=== PATIENT | male | born 1940 | race Caucasian/White ===

== ENCOUNTER 2016-07-06 00:59 | Emergency (ER) | payer MEDICARE, MEDICAID ==
[2016-07-06 01:20] VITALS: TEMP 98.7; BMI 32.7
--- NOTE | 2016-07-06 02:33 | EDPRACDOC ---
- General Information Chief Complaint: Dyspnea/Resp distress Stated Complaint: SHOB Time Seen by Provider: 07/06/16 02:29 Information Source: Patient, Family Mode Of Arrival: Car Home Medications: Home Medications Albuterol Sulfate [Proair Hfa] 2 puff INH Q4-6H PRN 12/01/14 Budesonide/Formoterol Fumarate [Symbicort 160-4.5 Mcg Inhaler] 2 puff INH BID Docusate Sodium [Stool Softener] 100 mg PO DAILY 12/01/14 Multivitamin [Multiple Vitamins] 1 tab PO DAILY 12/01/14 Oxymetazoline [Afrin] 2 spray IQRA BID 12/01/14 Ranitidine HCl 150 mg PO DAILY 12/01/14 Tiotropium [place] [Spiriva] 18 mcg INH DAILY 12/01/14 Amlodipine [Norvasc] 5 mg PO DAILY 06/10/16 Doxazosin Mesylate [Cardura] 4 mg PO HS 06/10/16 Furosemide [Lasix] 20 mg PO DAILY 06/10/16 Guaifenesin [Mucinex] 1,200 mg PO BID 06/10/16 Azithromycin [Zithromax Tri-Daron] 500 mg PO DAILY #3 tablet 06/13/16 Cefdinir [Omnicef] 300 mg PO BID #10 capsule 06/13/16 Furosemide [Lasix] 40 mg PO BID #10 tab 07/06/16 Potassium Chloride [K-Dur] 10 meq PO DAILY #10 tab 07/06/16 Allergies/Adverse Reactions: Allergies Allergy/AdvReac Type Severity Reaction Status Date / Time No Known Allergies Allergy Verified 06/10/16 07:08 - History of Present Illness Onset: SEVERAL DAYS Shortness of Breath: Moderate Relevant History: Reports: COPD, Heart Failure (CHF) (HAS HAD A POUND WEIGHT GAIN FOR THE PAST 5 CONSECUTIVE DAYS), Renal Disease Cough: Reports: Non-productive, Clear Rhinorrhea: Reports: Clear Ear Symptoms: Reports: None SOB Worsens with: Reports: Lying Flat, PND, Orthopnea SOB Improves with: Reports: Sitting up Associated Signs and symptoms: Denies: Fever - Treatment Prior to ED Arrival Reported Medications/Treatment [employer] Medications [employer] (Medication/ Proair Dose/Time) ED Past Medical History - History Reviewed Yes Nurses notes reviewed and agree except as marked - Patient Medical History Neurological History: Reports: Cerebrovascular Accident (2010 NO RESIDUAL) Cardiac History: Reports: Atrial Fibrillation, Hypertension, Congestive Heart Failure, Cardiac Catheterization (clean) Respiratory History: Reports: COPD, Pneumonia GI/ History: Reports: Renal Failure (seeing kidney specalist), Gastroesophageal Reflux Psychological History: Denies: Depression Systemic History: Reports: Diabetes Surgical History: Reports: Cholecystectomy, Cardiac Catheterization (clean) - Family Medical History Reports: Hypertension (FATHER, SIBLINGS), Diabetes (BROTHER), Cancer (BROTHER EAR CA), Cardiac Disorders (FATHER, SIBLINGS). Denies: Stroke - Social Medical History Smoking Status: Former smoker ETOH: None Substance Abuse: None Lives With: Family Lives In: Home EDM Review of Systems - Review of Systems ROS Negative Except as Marked: Yes All systems reviewed and were negative except as marked - Physical Exam Constitutional: No apparent distress, Alert Oriented to: Time, Person, Place Last recorded Vital Signs: Last Vital Signs Temp 98.7 F 07/06/16 01:10 Pulse 104 07/06/16 01:10 Resp 18 07/06/16 01:10 BP 152/64 07/06/16 01:10 Pulse Ox 95 07/06/16 01:10 Oxygen Pulse Oxygen Saturation 95 O2 Device Room Air Oxygen Flow Rate Fraction of Inspired Oxygen ( FIO2) - HEENT Head: Normal Oropharynx: Normal. negative: Membranes Dry - Respiratory/Cardiovascular Respiratory: Diminished Cardiovascular: Irregular ED SOB MDM - Differential Diagnosis Differential Diagnosis: Heart Failure, Pnuemonia, Respiratory Failure, Respiratory Insufficiency - Re-evaluation Re-evaluation 2 Re-evaluation Time: 03:57 (IMPROVED, NO DYSPNEA, SPEAKING FULL SENTENCES) - Results Result Diagrams: 07/06/16 02:42 07/06/16 02:42 - EKG EKG #1 EKG Time: 02:37 -: Yes EKG interpreted by me Rate: bpm: 99 Rhythm: Afib Block: None Hypertrophy: None ST: Nonsp Comparison: 06/10/16 (NO SIG CHANGE) - Diagnostic Imaging Chest Image interpreted by: Radiologist Diagnostic Imaging Comments: Patient Name: ANTONIO WEISS LOC: ED : 1940 AGE: 75 Order Date:07/06/16 Date of Service: Report # [id number] Ord Physician: Morgan Chaves Exam # [id number] Emergency Physician: Yamileth Ortiz MD Exam(s): [id number] RAD/DG CHEST 2V CLINICAL DATA: 75-year-old male with shortness of breath EXAM: CHEST 2 VIEW COMPARISON: Radiograph dated 06/11/2016 FINDINGS: Two views of the chest demonstrate emphysematous changes of the lungs. There is focal area of opacity at the left lung base appears similar to the prior study and may represent atelectasis versus pneumonia. Small bilateral pleural effusions noted. There is no pneumothorax. Stable cardiac silhouette. The osseous structures appear unremarkable. IMPRESSION: Small bilateral pleural effusions with persistent left lung base opacity. Clinical correlation and follow-up recommended. Electronically Signed By: Jose Sanchez M.D. On: 07/06/2016 02:51 Electronically Signed By: Jose Sanchez MD Electronically Signed Date/Time: 254 Dictate Date/Time: 07/06/16 0248 Technologist: Elizabeth Grimes Transcribed By: Karena Transcribed Date/Time: 07/06/16 0251 - Additional Information Additional Information: NO HYPOXIA, NO SIGNIF INCREASE IN WOB. ABLE TO AMBULATE APPROPRIATELY. CR STABLE, WILL INCREASE LASIX DOSE. PT HAS GOOD F/U. OUTPAT MANAGEMENT REASONABLE. - Departure Disposition: Home Condition: Stable Final Diagnosis: Acute decompensated heart failure Instructions: *Heart Failure (Activity, Diet, Worsening Symptoms, Weight Monitoring)(ED) Education/Counseling Given To: Patient, Family Member Education/Counseling Given Regarding: Diagnosis, Treatment, Prognosis Referrals: Jose Mckinney MD [Primary Care Provider] - One Week Maximiliano Truong MD [Staff Physician] - One Week Prescriptions: Furosemide [Lasix] 40 mg PO BID #10 tab Potassium Chloride [K-Dur] 10 meq PO DAILY #10 tab
[2016-07-06] MEDS ORDERED: FUROSEMIDE 40 MG/4 ML VIAL IV ONE (02:34)
[2016-07-06] MEDS ORDERED: NITROGLYCERINE 2 % OINTMENT PACK TOP ONE (02:34)
--- NOTE | 2016-07-06 02:54 | DIRPT ---
CLINICAL DATA: 75-year-old male with shortness of breath EXAM: CHEST 2 VIEW COMPARISON: Radiograph dated 06/11/2016 FINDINGS: Two views of the chest demonstrate emphysematous changes of the lungs. There is focal area of opacity at the left lung base appears similar to the prior study and may represent atelectasis versus pneumonia. Small bilateral pleural effusions noted. There is no pneumothorax. Stable cardiac silhouette. The osseous structures appear unremarkable. IMPRESSION: Small bilateral pleural effusions with persistent left lung base opacity. Clinical correlation and follow-up recommended. Electronically Signed By: Jose Sanchez M.D. On: 07/06/2016 02:51
[2016-07-06 02:59] LABS: MPV 7.3 fL (7.4-10.4)
[2016-07-06 03:07] LABS: BLOOD UREA NITROGEN 26 MG/DL (9-20); CALCIUM 9.9 MG/DL (8.4-10.2); CALCULATED OSMOLALITY 271 MOs/Kg (270-290); CHLORIDE 102 mEq/L (98-107); GLUCOSE 102 MG/DL (70-99); SODIUM LEVEL 138 mEq/L (137-146); TOTAL PROTEIN 7.6 G/DL (6.3-8.2)
[2016-07-06 03:15] LABS: CPK TOTAL WITH POSSIBLE MB 103 IU/L (55-170)
[2016-07-06 03:26] LABS: SEG NEUTROPHIL 82 % (45-76)
[2016-07-06 05:10] VITALS: BP 189/90; PULSE 106
== END 2016-07-06 05:00 | disposition home or self-care (01) ==
LOC: ED 00:59
DX: I50.9 Heart failure, unspecified (principal)
CPT/HCPCS: 36415; 71020; 80053; 82550; 83880; 84484; 85007; 85027; 93005; 94664; 96374; 99284; A9270; J1940; J3490